=== PATIENT | female | born 1985 | race Caucasian/White ===

== ENCOUNTER 2018-10-30 10:59 | Emergency (ER) | payer OTHER ==
[~2018-10-30] VITALS: Ht 152.4 cm; Wt 61.2 kg
== END 2018-10-30 16:00 | disposition home or self-care (01) ==
LOC: ER 10:59
DX: S13.4XXA Sprain of ligaments of cervical spine, initial encounter (principal); V49.9XXA Car occupant (driver) (passenger) injured in unspecified traffic accident, initial encounter; Y93.89 Activity, other specified; Y92.488 Other paved roadways as the place of occurrence of the external cause; Y99.8 Other external cause status